=== PATIENT | female | born 1950 | race Caucasian/White ===

== ENCOUNTER → 2018-01-17 | Outpatient (CLI) | payer MEDICARE, BC ==
[2018-01-17 13:24] LABS: ISTAT CREATININE 0.8 mg/dL (0.6-1.1)
[2018-01-17] MEDS: IOHEXOL 300 MG/ML 100ML VIAL. IV (13:24)
[2018-01-17] MEDS: IOHEXOL 240 MG/ML 50ML VIAL. PO (13:24)
== END | disposition home or self-care (01) ==
LOC: KCIC CT 11:56
DX: S33.140A Subluxation of L4/L5 lumbar vertebra, initial encounter (principal); K76.0 Fatty (change of) liver, not elsewhere classified; M47.895 Other spondylosis, thoracolumbar region; K57.30 Diverticulosis of large intestine without perforation or abscess without bleeding; K44.9 Diaphragmatic hernia without obstruction or gangrene; N20.0 Calculus of kidney; K59.00 Constipation, unspecified; X58.XXXA Exposure to other specified factors, initial encounter; Y93.89 Activity, other specified; Y92.89 Other specified places as the place of occurrence of the external cause; Y99.8 Other external cause status
CPT/HCPCS: 74178; 82565; Q9966; Q9967